=== PATIENT | female | born 1960 | race Caucasian/White ===

== ENCOUNTER 2017-01-15 05:52 | Day surgery (SDC) | payer MEDICAID ==
[~2017-01-15 05:52] MED LIST: AMLODIPINE2.5 MG PO; GABAPENTIN100 MG PO; GLIPIZIDE5 MG PO; HUMULIN R1 M1 SC; LOSARTAN POT50 MG PO; PRAVASTATIN SOD40 MG PO; TRADJENTA5 MG PO; TRAZODONE50 MG PO
[2017-01-15 08:09] VITALS: BP 107/63
== END 2017-01-15 08:02 | disposition home or self-care (01) | DRG 392 ==
LOC: ENDO 05:52 → ORM 17:30
PROVIDERS: ATTEND Internal Medicine Gastroenterology
PROC: 0DBE8ZX Excision of Large Intestine, Via Natural or Artificial Opening Endoscopic, Diagnostic (ICD-10-PCS; principal; 2017-01-15)
PROC: 0DBN8ZX Excision of Sigmoid Colon, Via Natural or Artificial Opening Endoscopic, Diagnostic (ICD-10-PCS; 2017-01-15)
PROC: 0DBL8ZX Excision of Transverse Colon, Via Natural or Artificial Opening Endoscopic, Diagnostic (ICD-10-PCS; 2017-01-15)
DX: R14.0 Abdominal distension (gaseous) (principal); I10 Essential (primary) hypertension; R19.7 Diarrhea, unspecified; K59.00 Constipation, unspecified; R11.0 Nausea; R10.84 Generalized abdominal pain; K64.4 Residual hemorrhoidal skin tags; K64.8 Other hemorrhoids; D12.3 Benign neoplasm of transverse colon; K63.5 Polyp of colon; F17.210 Nicotine dependence, cigarettes, uncomplicated; E78.00 Pure hypercholesterolemia, unspecified; E11.9 Type 2 diabetes mellitus without complications